=== PATIENT | male | born 1965 | race Caucasian/White ===

== ENCOUNTER 2017-07-11 19:25 | Emergency (ER) | payer MEDICAID, OTHER ==
[~2017-07-11] VITALS: Ht 177.8 cm; Wt 125.7 kg
[2017-07-11 19:39] VITALS: BP 161/77; PULSE 98; RESP 18; TEMP 98.7; O2SAT 99
[2017-07-11] MEDS ORDERED: predniSONE 20 MG TAB PO ONE (20:15)
[2017-07-11] MEDS ORDERED: PRED20 PO (20:26)
[2017-07-11] MEDS ORDERED: ZANT300T PO (20:26)
[2017-07-11] MEDS ORDERED: MOBI15TA PO (20:26)
--- NOTE | 2017-07-11 20:26 | PD ---
HPI Chief Complaint: Pain: Acute or Chronic Time Seen by Provider: 20:06 Travel History International Travel<30 days: No Contact w/Intl Traveler<30days: No Traveled to known affect area: No History of Present Illness HPI 51-year-old male complains of pain and swelling of the left knee. Patient states that the symptoms started about 5 days ago. Patient has history of gouty arthritis with recurrent left knee pain and swelling in the past. Patient responded well to colchicine and anti-inflammatory medication in the past. Patient denies any recent injury. Patient denies any fever chills. Patient states the pain is sharp pain severe pain localized to left knee. Patient denies any pain radiation. On a scale of 1-10 the pain is a 9. PFSH Past Medical History Medical History: Denies Significant Hx Tetanus Vaccination: > 5 Years Influenza Vaccination: No Past Surgical History Surgical History: No Previous Surgery Social History Alcohol Use: Yes (rare) Tobacco Use: No Substance Use: No Allergies-Medications (Allergen,Severity, Reaction): Coded Allergies: No Known Allergies (Unverified , 07/11/17) Reported Meds & Prescriptions Reported Meds & Active Scripts Active Zantac (Ranitidine HCl) 300 Mg Tab 300 Mg PO DAILY Prednisone 20 Mg Tab 20 Mg PO BID Mobic (Meloxicam) 15 Mg Tab 15 Mg PO DAILY Review of Systems General / Constitutional: No: Fever Eyes: No: Visual changes HENT: No: Headaches Cardiovascular: No: Chest Pain or Discomfort Respiratory: No: Shortness of Breath Gastrointestinal: No: Abdominal Pain Genitourinary: No: Dysuria Musculoskeletal: Positive: Pain Skin: No Rash Neurologic: No: Weakness Psychiatric: No: Depression Endocrine: No: Polydipsia Hematologic/Lymphatic: No: Easy Bruising Physical Exam Narrative GENERAL: Well-nourished, well-developed patient. SKIN: Focused skin assessment warm/dry. HEAD: Normocephalic. EYES: No scleral icterus. No injection or drainage. NECK: Supple, trachea midline. No JVD or lymphadenopathy. CARDIOVASCULAR: Regular rate and rhythm without murmurs, gallops, or rubs. RESPIRATORY: Breath sounds equal bilaterally. No accessory muscle use. GASTROINTESTINAL: Abdomen soft, non-tender, nondistended. MUSCULOSKELETAL: No cyanosis, or edema. BACK: Nontender without obvious deformity. No CVA tenderness. Patient has diffuse soft tissue swelling with effusion left knee. Limited range of motion the left knee secondary to pain. Knee joints stable. No redness no heat noted. Data Data Last Documented VS Vital Signs Date Time Temp Pulse Resp B/P (MAP) Pulse Ox O2 Delivery O2 Flow Rate FiO2 07/11/17 19:39 98.7 98 18 161/77 (105) 99 Orders Orders Prednisone (Deltasone) (07/11/17 20:15) Splint Or Brace Apply/Monitor (07/11/17 20:24) [facility] Medical Decision Making Medical Screen Exam Complete: Yes Emergency Medical Condition: Yes Differential Diagnosis Differential diagnosis including osteoarthritis, gouty arthritis, bony injury, bony injury, septic arthritis. Narrative Course 51-year-old male with pain swelling left knee. Patient has effusion the left knee. History of recurrent left knee pain and swelling. History of gouty arthritis. Patient does not want knee aspiration or IM injection of medication. Diagnosis Primary Impression: Arthralgia of knee, left Additional Impression: Effusion, left knee Patient Instructions: General Instructions Additional Instructions: Take medication as directed. Oleg wrap to left knee. Follow-up with orthopedist. Return if worse. Med/Other Pt SpecificInfo: Prescription(s) given Scripts Hydrocodone-Acetaminophen ([place]) 5-325 mg Tab 1 TAB PO Q6H Y for PAIN, #12 TAB 0 Refills Prov: Nato Tavarez MD 07/11/17 Ranitidine (Zantac) 300 Mg Tab 300 MG PO DAILY, #14 TAB 0 Refills Prov: Nato Tavarez MD 07/11/17 Prednisone (Prednisone) 20 Mg Tab 20 MG PO BID, #14 TAB 0 Refills Prov: Nato Tavarez MD 07/11/17 Meloxicam (Mobic) 15 Mg Tab 15 MG PO DAILY, #20 TAB 0 Refills Prov: Nato Tavarez MD 07/11/17 Disposition: 01 DISCHARGE HOME Condition: Stable Nato Tavarez MD Jul 11, 2017 20:26
[2017-07-11] MEDS ORDERED: NORC5TAB PO (20:27)
== END 2017-07-11 20:40 | disposition home or self-care (01) ==
LOC: PHEFT 19:25
DX: M25.562 Pain in left knee (principal); M25.462 Effusion, left knee; M10.9 Gout, unspecified
CPT/HCPCS: 99284; J7512